=== PATIENT | male | born 1960 | race Caucasian/White ===

== ENCOUNTER 2020-06-12 16:05 | Emergency (ER) | payer MEDICAID ==
[~2020-06-12] VITALS: Ht 170.2 cm; Wt 63.6 kg
[2020-06-12 16:22] VITALS: BP 148/70; Ht 170.2 cm; Wt 63.6 kg
[2020-06-12] MEDS ORDERED: FERROUS SULFAT325 MG PO (16:27)
[2020-06-12] MEDS ORDERED: LANTUS INS100 UNITS/ SC (16:27)
[2020-06-12] MEDS ORDERED: BAYER CHEWABLE81 MG PO (16:27)
[2020-06-12] MEDS ORDERED: HUMALOG 30100 UNITS/ SC (16:28)
[2020-06-12] MEDS ORDERED: CLEOCIN HCL300 MG PO (17:42)
== END 2020-06-12 18:10 | disposition home or self-care (01) ==
LOC: D.ER 16:05
DX: L98.499 Non-pressure chronic ulcer of skin of other sites with unspecified severity (principal); E11.9 Type 2 diabetes mellitus without complications; Z79.4 Long term (current) use of insulin